=== PATIENT | male | born 1985 | race American Indian/Alaskan Native ===

== ENCOUNTER 2019-04-21 11:16 | Emergency (ER) | payer OTHER ==
--- NOTE | 2019-04-21 12:21 | Event Note ---
ED Screening Note Date of service: 04/21/19 Time: 12:19 ED Screening Note: 33 y/o male comes in for Urinary urgency. Denies any hematuria or penile discharge. This initial assessment/diagnostic orders/clinical plan/treatment(s) is/are subject to change based on patients health status, clinical progression and re- assessment by fellow clinical providers in the ED. Further treatment and workup at subsequent clinical providers discretion. Patient/guardian urged not to elope from the ED as their condition may be serious if not clinically assessed and managed. Initial orders include:
--- NOTE | 2019-04-21 12:46 | Emergency Department Report ---
ED Abdominal Pain HPI - General Chief Complaint: Urogenital-Male Stated Complaint: DIFFICULTY URINATING Time Seen by Provider: 04/21/19 12:18 Source: patient Mode of arrival: Ambulatory Limitations: No Limitations - History of Present Illness Initial Comments: Patient is 33 years old male with no significant past medical history. Patient presented to the ER complaining of right flank pain that radiated down to his right groin area. Patient also complaining of dysuria but no hematuria. Patient denied any fever or chills. MD Complaint: flank pain - Related Data Previous Rx's Medication Instructions Recorded Last Taken Type metFORMIN [Glucophage] 500 mg PO BID #60 05/31/13 Unknown Rx Allergies Allergy/AdvReac Type Severity Reaction Status Date / Time No Known Allergies Allergy Unverified 05/31/13 19:09 ED Review of Systems ROS: Stated complaint: DIFFICULTY URINATING Other details as noted in HPI Comment: All other systems reviewed and negative Constitutional: denies: chills, fever Respiratory: denies: cough, orthopnea, shortness of breath, SOB with exertion Cardiovascular: denies: chest pain, palpitations Gastrointestinal: denies: abdominal pain, nausea, vomiting, diarrhea, constipation, hematemesis, hematochezia Musculoskeletal: denies: back pain ED Past Medical Hx - Past Medical History Hx Diabetes: Yes - Social History Smoking Status: Never Smoker Substance Use Type: None - Medications Home Medications: Home Medications Medication Instructions Recorded Confirmed Last Taken Type metFORMIN [Glucophage] 500 mg PO BID #60 05/31/13 05/31/13 Unknown Rx ED Physical Exam - General Limitations: No Limitations General appearance: alert, in no apparent distress - Head Head exam: Present: atraumatic, normocephalic, normal inspection - Eye Eye exam: Present: normal appearance - ENT ENT exam: Present: normal exam - Neck Neck exam: Present: normal inspection. Absent: tenderness, meningismus - Respiratory Respiratory exam: Present: normal lung sounds bilaterally - Cardiovascular Cardiovascular Exam: Present: tachycardia, normal heart sounds. Absent: systolic murmur, diastolic murmur - GI/Abdominal GI/Abdominal exam: Present: soft, normal bowel sounds. Absent: distended, ten derness, guarding, rebound, rigid, organomegaly, mass, bruit, pulsatile mass, hernia - Extremities Exam Extremities exam: Present: normal inspection, full ROM, normal capillary refill - Back Exam Back exam: Present: normal inspection, CVA tenderness (R). Absent: tenderness, CVA tenderness (L) - Neurological Exam Neurological exam: Present: alert, oriented X3, CN II-XII intact, normal gait, reflexes normal - Skin Skin exam: Present: intact ED Course Vital Signs 04/21/19 12:19 Temperature 98.3 F Pulse Rate 108 H Respiratory 20 Rate Blood Pressure 140/86 O2 Sat by Pulse 99 Oximetry ED Medical Decision Making - Lab Data Result diagrams: 04/21/19 12:46 04/21/19 12:46 - Radiology Data Radiology results: report reviewed Referring Physician: VARGAS LINCOLN Patient Name: BARBARA NOBLES Date of : 1985 Sex: Male Report Date: 2019-04-21 Report Status: Finalized Findings [facility] [address] [place] [address] Cat Scan Report Signed Patient: BARBARA NOBLES MR#: [id number] : 1985 Acct:[id number] Age/Sex: 33 / M ADM Date: 04/21/19 Loc: ED Attending Dr: Ordering Physician: VARGAS LINCOLN Date of Service: 04/21/19 Procedure(s): CT abdomen pelvis wo con Accession Number(s): [id number] cc: VARGAS LINCOLN CT abdomen pelvis wo con INDICATION: right flank pain. TECHNIQUE: All CT scans at this location are performed using CT dose reduction for ALARA by means of automated exposure control. COMPARISON: None available. FINDINGS: Lung bases are clear. Liver, gallbladder, spleen, pancreas, kidneys and adrenals are grossly negative on this noncontrast exam. Incidental tiny, nonobstructing calculus in the right kidney. Abdominal aorta is normal in size. Pelvis Normal appendix. Urinary bladder and distal ureters are negative. No free fluid or inflammation. IMPRESSION: 1. Tiny, nonobstructing calculus in the right kidney, but no hydronephrosis, ureteral calculus or other acute abnormality. Signer Name: Rory Nye MD Signed: 04/21/2019 1:36 PM Workstation Name: [id number] Transcribed By: TM Dictated By: Rory Nye MD Electronically Authenticated By: Rory Nye MD Signed Date/Time: 04/21/191335 DD/ 32 TD/TT: Critical care attestation.: If time is entered above; I have spent that time in minutes in the direct care of this critically ill patient, excluding procedure time. ED Disposition Clinical Impression: Right flank pain, Kidney stone on right side Disposition: DC-01 TO HOME OR SELFCARE Is pt being admited?: No Condition: Stable Instructions: Kidney Stones (ED) Referrals: REYNOLD GRACIA MD [Primary Care Provider] - 3-5 Days
--- NOTE | 2019-04-21 13:40 | Cat Scan Report ---
CT abdomen pelvis wo con INDICATION: right flank pain. TECHNIQUE: All CT scans at this location are performed using CT dose reduction for ALARA by means of automated e xposure control. COMPARISON: None available. FINDINGS: Lung bases are clear. Liver, gallbladder, spleen, pancreas, kidneys and adrenals are grossly negative on this noncontrast exam. Incidental tiny, nonobstructing calculus in the right kidney. Abdominal ao rta is normal in size. Pelvis Normal appendix. Urinary bladder and distal ureters are negative. No free fluid or inflammation. IMPRESSION: 1. Tiny, nonobstructing calculus in the right kidney, but no hydronephrosis, ureteral calculus or oth er acute abnormality. Signer Name: Rory Nye MD Signed: 04/21/2019 1:36 PM Workstation Name: [id number]
[2019-04-21 14:16] LABS: Bilirubin,Urine NEG (Negative); Blood,Urine NEG (Negative); Color,Urine Yellow (Yellow); Mucus,Urine FEW /HPF; Protein,Urine <15 mg/dL mg/dL (Negative); Urobilinogen,Urine < 2.0 mg/dL (<2.0)
[2019-04-21 14:28] LABS: Basophils % (Auto) 0.6 % (0.0-1.8); Eosinophils # (Auto) 0.2 K/mm3 (0.0-0.4); Eosinophils % (Auto) 3.4 % (0.0-4.3); Hematocrit 38.8 % (35.5-45.6); Hemoglobin 12.8 gm/dl (11.8-15.2); Lymphocytes % (Auto) 30.7 % (13.4-35.0); Mean Corpuscular HGB Conc 33 % (32-34); Mean Corpuscular Volume 83 fl (84-94); Monocytes # (Auto) 0.4 K/mm3 (0.0-0.8); Monocytes % (Auto) 6.9 % (0.0-7.3); Platelet Count 273 K/mm3 (140-440); Red Blood Count 4.67 M/mm3 (3.65-5.03); Red Cell Distribution Width 13.8 % (13.2-15.2)
[2019-04-21 14:31] LABS: BUN/Creatinine Ratio 16; Blood Urea Nitrogen 14 mg/dL (9-20); Calcium 9.4 mg/dL (8.4-10.2); Hemolysis Index 7
[2019-04-21 15:20] VITALS: BP 127/83
== END 2019-04-21 15:21 | disposition home or self-care (01) ==
LOC: ED 11:16
DX: N20.0 Calculus of kidney (principal); E11.9 Type 2 diabetes mellitus without complications
CPT/HCPCS: 36415; 74176; 80048; 81001; 85025